=== PATIENT | female | born 1990 | race Asian ===

== ENCOUNTER 2017-05-21 12:45 | Inpatient (IN) | payer OTHER ==
[~2017-05-21] VITALS: Ht 157.5 cm; Wt 68.0 kg
[2017-05-21] MEDS: LACTATED RINGERS 1,000 ML IV SCH (01:30)
[2017-05-21] MEDS ORDERED: TERBUTALINE 1 MG/ML VIAL SUBQ SCH (13:20)
[2017-05-21] MEDS ORDERED: TERBUTALINE 1 MG/ML VIAL SUBQ ONE (13:26)
[2017-05-21] MEDS ORDERED: PROMETHAZINE 25 MG/ML VIAL IM PRN (17:10)
[2017-05-21] MEDS ORDERED: NALBUPHINE 10 MG/ML AMP IM PRN (17:10)
[2017-05-21] MEDS ORDERED: TERBUTALINE 2.5 MG TAB ONE ×2 (17:18→21:17)
[2017-05-21] MEDS ORDERED: NALBUPHINE HYDROCHLORIDE 10 MG/ML VIAL ONE ×2 (17:18→23:43)
[2017-05-21] MEDS ORDERED: PROMETHAZINE 25 MG/ML VIAL ONE ×2 (17:19→23:44)
[2017-05-21] MEDS ORDERED: TERBUTALINE 2.5 MG TAB PO SCH (20:00)
[2017-05-21] MEDS ORDERED: METHYLERGONOVINE 0.2 MG/ML AMP IM PRN ×2 (22:50→23:10)
[2017-05-21] MEDS ORDERED: CARBOPROST 250 MCG/ML AMP IM PRN ×2 (22:50→23:10)
[2017-05-21] MEDS ORDERED: OXYTOCIN 10 UNITS/ML VIAL IM SCH ×2 (22:50→23:10)
[2017-05-21] MEDS ORDERED: CITRIC ACID/SODIUM CITRATE 30 ML UDC PO ONE (23:15)
[2017-05-21] MEDS ORDERED: ceFAZolin 2,000 MG in NACL 0.9% 100 ML IV ONE (23:20)
[2017-05-21] MEDS ORDERED: OXYTOCIN 20 UNITS in LACTATED RINGERS 1,000 ML IV SCH (23:25)
[2017-05-21 23:40] LABS: HEMATOCRIT 38.5 % (36-48); HEMOGLOBIN 12.8 g/dL (12.0-16.0); RED BLOOD CELL COUNT(AUTO) 4.72 MIL/uL (4.20-5.40); WHITE BLOOD COUNT (AUTO) 8.8 K/uL (4.8-10.8)
[2017-05-21 23:41] LABS: BASOPHILS % (AUTO) 1.7 % (0.0-2.0); EOSINOPHILS % (AUTO) 1.2 % (0.0-4.0); LYMPHOCYTES % (AUTO) 17.1 % (20.5-51.1); MEAN CORPUSCULAR HEMOGLOBIN 27 pg (27-31); MEAN CORPUSCULAR HGB CONC 33 g/dL (33-37); MEAN CORPUSCULAR VOLUME 82 fL (80-94); MONOCYTES % (AUTO) 6.7 % (1.7-9.3); NEUTROPHILS # (AUTO) 6.5 K/uL (1.8-7.7); NEUTROPHILS % (AUTO) 73.3 % (42.2-75.2); PLATELET COUNT (AUTO) 244 K/uL (140-450); RED CELL DISTRIBUTION WIDTH 14.1 % (11.6-13.7)
[2017-05-21 23:42] LABS: BASOPHILS # (AUTO) 0.1 K/uL (0.00-0.22); EOSINOPHILS # (AUTO) 0.1 K/uL (0-0.4); LYMPHOCYTES # (AUTO) 1.5 K/uL (2.5-16.5); MONOCYTES # (AUTO) 0.6 K/uL (0.8-1.0)
[2017-05-21 23:58] LABS: ANION GAP 14.8 (8-16); CARBON DIOXIDE 26.3 mmol/L (21-32); CREATININE 0.9 mg/dL (0.6-1.3); POTASSIUM 4.1 mmol/L (3.5-5.1)
[2017-05-22 00:07] VITALS: BP 131/74
[2017-05-22 00:10] LABS: ALBUMIN 2.3 g/dL (3.4-5.0); TOTAL BILIRUBIN 0.3 mg/dL (0.0-1.0)
[2017-05-22 03:40] LABS: APPEARANCE,URINE CLEAR (CLEAR); BILIRUBIN,URINE NEGATIVE (NEGATIVE); BLOOD, URINE TRACE-I (NEGATIVE); COLOR,URINE YELLOW (YELLOW); LEUKOCYTE ESTERASE ,URINE NEGATIVE (NEGATIVE); NITRITE, URINE NEGATIVE (NEGATIVE); UGLUCOSE NEGATIVE (NEGATIVE)
[2017-05-22 03:54] LABS: RBC,URINE 0-5 (RARE) /HPF (0-5); WBC,URINE 0-5 (RARE) /HPF (0-5)
[2017-05-22] MEDS ORDERED: CITRIC ACID/SODIUM CITRATE 30 ML UDC ONE (06:07)
[2017-05-22] MEDS ORDERED: ceFAZolin 1,000 MG VIAL ONE (06:07)
[2017-05-22] MEDS ORDERED: OXYTOCIN 10 UNITS/ML VIAL ONE (06:50)
[2017-05-22] MEDS ORDERED: TRIAMCINOLONE 40 MG/ML 5ML VIAL ONE (06:51)
[2017-05-22] MEDS ORDERED: MORPHINE PRES FREE 10 MG/10 ML AMP IV ONE (07:09)
[2017-05-22] MEDS ORDERED: ONDANSETRON 4 MG/2 ML VIAL ONE (07:15)
[2017-05-22] MEDS ORDERED: oxyCODONE/APAP 5/325 MG 1 TAB TAB PO PRN (07:30)
[2017-05-22] MEDS ORDERED: METHYLERGONOVINE 0.2 MG/ML AMP IM PRN ×2 (07:30→11:15)
[2017-05-22] MEDS ORDERED: TRIMETHOBENZAMIDE 200 MG/2 ML SYR IM PRN (07:30)
[2017-05-22] MEDS ORDERED: TEMAZEPAM 15 MG CAP PO PRN (07:30)
[2017-05-22] MEDS ORDERED: MEASLES, MUMPS, AND RUBELLA 1 VIAL SQVAC PRN (07:30)
[2017-05-22] MEDS ORDERED: OXYTOCIN 20 UNITS in LACTATED RINGERS 1,000 ML IV SCH (07:36)
[2017-05-22] MEDS ORDERED: NALOXONE 0.4 MG/ML VIAL IVP PRN ×2 (07:40)
[2017-05-22] MEDS ORDERED: diphenhydrAMINE 50 MG/ML VIAL IVP PRN (07:40)
--- NOTE | 2017-05-22 09:15 | NUR ---
PATIENT HAS BEEN SCREENED AND CATEGORIZED LOW NUTRITION RISK. PATIENT WILL BE SEEN WITHIN 7 DAYS OF ADMISSION. 05/27/[address]
[2017-05-22] MEDS: LACTATED RINGERS 1,000 ML IV SCH ×2 (10:05→20:52)
[2017-05-22] MEDS ORDERED: METHYLERGONOVINE 0.2 MG/ML AMP ONE (11:18)
[2017-05-22] MEDS ORDERED: MISOPROSTOL 100 MCG TAB ONE (11:31)
[2017-05-22] MEDS ORDERED: CARBOPROST 250 MCG/ML AMP IM ONE (11:31)
[2017-05-22] MEDS ORDERED: CARBOPROST 250 MCG/ML AMP IM SCH ×2 (11:32→11:41)
[2017-05-22] MEDS ORDERED: MISOPROSTOL 200 MCG TAB RC SCH (11:40)
[2017-05-22] MEDS: OXYTOCIN 20 UNITS in LACTATED RINGERS 1,000 ML IV SCH (12:00)
[2017-05-22 12:53] LABS: BASOPHILS % (AUTO) 0.3 % (0.0-2.0); EOSINOPHILS % (AUTO) 0.3 % (0.0-4.0); HEMATOCRIT 25.1 % (36-48); HEMOGLOBIN 8.4 g/dL (12.0-16.0); LYMPHOCYTES # (AUTO) 0.9 K/uL (2.5-16.5); LYMPHOCYTES % (AUTO) 5.4 % (20.5-51.1); MEAN CORPUSCULAR HEMOGLOBIN 27 pg (27-31); MEAN CORPUSCULAR HGB CONC 34 g/dL (33-37); MEAN CORPUSCULAR VOLUME 82 fL (80-94); MONOCYTES # (AUTO) 1.1 K/uL (0.8-1.0); MONOCYTES % (AUTO) 6.7 % (1.7-9.3); NEUTROPHILS # (AUTO) 14.4 K/uL (1.8-7.7); NEUTROPHILS % (AUTO) 87.3 % (42.2-75.2); PLATELET COUNT (AUTO) 132 K/uL (140-450); RED BLOOD CELL COUNT(AUTO) 3.08 MIL/uL (4.20-5.40); RED CELL DISTRIBUTION WIDTH 14.4 % (11.6-13.7); WHITE BLOOD COUNT (AUTO) 16.4 K/uL (4.8-10.8)
[2017-05-22 13:10] LABS: ANION GAP 14.2 (8-16); CARBON DIOXIDE 24.4 mmol/L (21-32); CREATININE 0.7 mg/dL (0.6-1.3); POTASSIUM 5.6 mmol/L (3.5-5.1)
[2017-05-22 13:14] LABS: ALBUMIN 1.5 g/dL (3.4-5.0); TOTAL BILIRUBIN 0.7 mg/dL (0.0-1.0)
[2017-05-22 13:30] LABS: PROTHROMBIN TIME 11.8 secs (10.8-13.4)
[2017-05-22] MEDS ORDERED: DOCUSATE SOD/SENNA 50/8.6 MG 1 TAB PO SCH (21:00)
[2017-05-23] MEDS ORDERED: OXYTOCIN 10 UNITS/ML VIAL ONE (04:58)
[2017-05-23] MEDS: OXYTOCIN 20 UNITS in LACTATED RINGERS 1,000 ML IV SCH (05:30)
[2017-05-23 07:29] LABS: MEAN CORPUSCULAR HEMOGLOBIN 27 pg (27-31); MEAN CORPUSCULAR HGB CONC 34 g/dL (33-37); MEAN CORPUSCULAR VOLUME 81 fL (80-94); PLATELET COUNT (AUTO) 145 K/uL (140-450); RED BLOOD CELL COUNT(AUTO) 2.37 MIL/uL (4.20-5.40); RED CELL DISTRIBUTION WIDTH 14.3 % (11.6-13.7); WHITE BLOOD COUNT (AUTO) 19.4 K/uL (4.8-10.8)
[2017-05-23 07:42] LABS: HEMOGLOBIN 6.5 g/dL (12.0-16.0)
[2017-05-23 07:43] LABS: HEMATOCRIT 19.3 % (36-48)
[2017-05-23] MEDS: FERROUS SULFATE 325 MG TABEC PO SCH ×2 (09:04→17:27)
[2017-05-23 09:20] LABS: LYMPHOCYTES % (MANUAL) 6 % (20-46); MONOCYTES % (MANUAL) 3 % (5-12)
[2017-05-23] MEDS: IBUPROFEN 800 MG TAB PO PRN (20:36)
[2017-05-24] MEDS: HYDROcodone/APAP 5/325 MG 1 TAB TAB PO PRN (02:05)
[2017-05-24] MEDS: SIMETHICONE 80 MG TAB.CHEW PO PRN (02:06)
[2017-05-24 06:22] LABS: WHITE BLOOD COUNT (AUTO) 22.8 K/uL (4.8-10.8)
[2017-05-24 06:29] LABS: MEAN CORPUSCULAR HEMOGLOBIN 27 pg (27-31); MEAN CORPUSCULAR HGB CONC 34 g/dL (33-37); MEAN CORPUSCULAR VOLUME 81 fL (80-94); PLATELET COUNT (AUTO) 205 K/uL (140-450); RED BLOOD CELL COUNT(AUTO) 2.42 MIL/uL (4.20-5.40); RED CELL DISTRIBUTION WIDTH 14.5 % (11.6-13.7)
[2017-05-24 06:35] LABS: HEMATOCRIT 19.6 % (36-48)
[2017-05-24 06:44] LABS: LYMPHOCYTES % (MANUAL) 10 % (20-46); MONOCYTES % (MANUAL) 8 % (5-12)
[2017-05-24 07:12] LABS: HEMOGLOBIN 6.6 g/dL (12.0-16.0)
[2017-05-24] MEDS ORDERED: METOCLOPRAMIDE 10 MG/2 ML INJ VIAL IVP PRN (13:20)
--- NOTE | 2017-05-24 14:00 | NUR ---
I met with patient and discuss physical status, support system, lack of interaction and bonding with baby. Patient was guarded and limited with communicating with me; no eye contact and a flat affect. I continue talking to patient and educated mother about needs, lack of stimulation from mother, and possible consequences on infants not connecting/bounding with parent, caregiver (RAD/Reactive Attachment Disorder). Patient became interactive, focus and less guarded as I was describing some of the needs her new born is needing and she is not providing for him. Patient became more open and provided background and family dynamics. Patient stated having a difficult with limited support from parents, with who she is presently living in [facility] [place] [facility]. Per Patient she and baby's father did not plan the and have not got after 2 years in the relationship. Patient disclosed that it is a cultural issue in her family which created conflict with patient's parents. Per Patient they have expressed disappointment on her choices no long ago and she is hopeful that things can change now that the baby is born. Patient stated having feelings of overwhelming depression, stress, guilt combine now with pain and nausea from . Patient stated " I feel so tired, unmotivated and on pain that I can not get my self to get up or hold the baby; its hard for me to move, my body is on pain and I'm nauseous a lot". I listed to Patient, acknowledged feelings, concerns and physical state, educated her about depression, symptoms and give her resources and referrals for support groups however; I also confronted her about her lack of efforts to learn skills or even utilized nursing support and assistance with her baby. Discussed possible time spending with nurse asking questions and learning how to care for her baby for when she is at home. Patient seem to gain insight and a different perspective on her situation and was able to acknowledged her behaviors and lack of efforts to bound with baby. Agreed to attempt and have interactions with baby, ask, and learn new skills to care for new born. Patient stated that she will spend alone time with baby at about 16:00 and accepted referrals from this health technical writer. Patient also stated that she will talk to baby's father and her parents to ask for support and help when returning home. Patient thank me for time, information and resources.
[2017-05-24] MEDS ORDERED: KETOROLAC 30 MG/ML VIAL IVP PRN (16:40)
[2017-05-24] MEDS ORDERED: PIPERACILLIN/TAZOBACTAM 4.5 GM in DEXTROSE 5% 100 ML IV SCH (18:00)
[2017-05-24] MEDS: PIPERACILLIN/TAZOBACTAM 4.5 GM in NACL 0.9% 100 ML IV SCH (22:07)
[2017-05-24 23:25] LABS: HEMATOCRIT 27.8 % (36-48); HEMOGLOBIN 9.2 g/dL (12.0-16.0)
[2017-05-25] MEDS: HYDROcodone/APAP 5/325 MG 1 TAB TAB PO PRN (03:23)
[2017-05-25] MEDS: SIMETHICONE 80 MG TAB.CHEW PO PRN ×2 (03:44→08:25)
[2017-05-25] MEDS: PIPERACILLIN/TAZOBACTAM 4.5 GM in NACL 0.9% 100 ML IV SCH ×2 (04:05→10:00)
[2017-05-25 06:32] LABS: BASOPHILS % (AUTO) 0.3 % (0.0-2.0); EOSINOPHILS # (AUTO) 0.1 K/uL (0-0.4); EOSINOPHILS % (AUTO) 0.9 % (0.0-4.0); HEMATOCRIT 26.6 % (36-48); HEMOGLOBIN 8.9 g/dL (12.0-16.0); LYMPHOCYTES # (AUTO) 1.3 K/uL (2.5-16.5); LYMPHOCYTES % (AUTO) 7.9 % (20.5-51.1); MEAN CORPUSCULAR HEMOGLOBIN 28 pg (27-31); MEAN CORPUSCULAR HGB CONC 33 g/dL (33-37); MEAN CORPUSCULAR VOLUME 85 fL (80-94); MONOCYTES # (AUTO) 0.8 K/uL (0.8-1.0); MONOCYTES % (AUTO) 4.8 % (1.7-9.3); NEUTROPHILS # (AUTO) 14.4 K/uL (1.8-7.7); NEUTROPHILS % (AUTO) 86.1 % (42.2-75.2); PLATELET COUNT (AUTO) 236 K/uL (140-450); RED BLOOD CELL COUNT(AUTO) 3.15 MIL/uL (4.20-5.40); RED CELL DISTRIBUTION WIDTH 14.5 % (11.6-13.7)
[2017-05-25 07:22] LABS: WHITE BLOOD COUNT (AUTO) 16.6 K/uL (4.8-10.8)
[2017-05-25] MEDS: FERROUS SULFATE 325 MG TABEC PO SCH (08:17)
[2017-05-25] MEDS: IBUPROFEN 800 MG TAB PO PRN (08:24)
[2017-05-25] MEDS ORDERED: INFLUENZA VIRUS VACCINE QUAD 0.5 ML SYR IMVAC PRN (09:00)
[2017-05-25] MEDS ORDERED: PIPERACILLIN/TAZOBACTAM 4.5 GM in DEXTROSE 5% 50 ML IV SCH (18:00)
== END 2017-05-25 21:00 | disposition home or self-care (01) | DRG 540 ==
LOC: MLD 12:45 → OBSVTOIN 22:30 → MFCC 05-22 08:21
PROVIDERS: ADMIT Obstetrics & Gynecology; ATTEND Obstetrics & Gynecology
PROC: 10D00Z1 Extraction of Products of Conception, Low, Open Approach (ICD-10-PCS; 2017-05-21)
PROC: 30233N1 Transfusion of Nonautologous Red Blood Cells into Peripheral Vein, Percutaneous Approach (ICD-10-PCS; principal; 2017-05-24)
DX: O98.52 Other viral diseases complicating childbirth (principal); K56.7 Ileus, unspecified; O75.4 Other complications of obstetric surgery and procedures; B00.9 Herpesviral infection, unspecified; O99.02 Anemia complicating childbirth; D64.9 Anemia, unspecified; Z37.0 Single live birth; Z3A.38 38 weeks gestation of pregnancy; K91.89 Other postprocedural complications and disorders of digestive system
CPT/HCPCS: G0378 ×10; 36415; 74018; 76805; 80053; 81001; 85018; 85025; 85610; 85730; 86592; 86886; 86900; 86901; 86920; J0690; J2210; J2270; J2300; J2405; J2543; J2550; J2590; J2765; J3105; J3301; J3490; J7030; J7060; J7120; P9016; Q0092

== ENCOUNTER 2017-07-02 02:20 | Emergency (ER) | payer OTHER ==
[~2017-07-02] VITALS: Ht 157.5 cm; Wt 49.9 kg
[2017-07-02 02:38] VITALS: BP 154/94
--- NOTE | 2017-07-02 03:32 | NUR ---
PT TAKEN TO BED 11
--- NOTE | 2017-07-02 03:34 | NUR ---
27 Y/O F W/C/O PELVIC PAIN,CHILLS AND PUS FORM X YESTERDAY. PT STATES HAD A ON 05/22/17 AND WAS OK UNTIL YESTERDAY. MED HX X 1, NO OTHER S/S OF DISTRESS NOTED AT THE MOMENT. ER MADE AWARE.
[2017-07-02] MEDS ORDERED: KETOROLAC 30 MG/ML VIAL IM ONE (03:50)
[2017-07-02] MEDS ORDERED: HYDROcodone/APAP 5/325 MG 1 TAB TAB PO ONE (03:50)
[2017-07-02] MEDS ORDERED: CLINDAMYCIN 600 MG/4 ML VIAL IM ONE (03:50)
[2017-07-02] MEDS ORDERED: BACITRACIN OINT 500 UNITS/GM PKT TP ONE (06:10)
--- NOTE | 2017-07-02 06:16 | NUR ---
ASSIST DR. COMBS WITH INCISION at bedside for entire examination. Patient tolerated procedure . Patient assisted to position of comfort after examination.
[2017-07-02 06:30] VITALS: BP 138/96
--- NOTE | 2017-07-02 06:30 | NUR ---
Patient discharged with v/s stable. Written and verbal after care instructions given and explained. Patient alert, oriented and verbalized understanding of instructions. Ambulatory with steady gait. All questions addressed prior to discharge. ID band removed. Patient advised to follow up with PMD. Rx of CLINDAMYCIN, NORCO, AND NAPROSYN given. Patient educated on indication of medication including possible reaction and side effects. Opportunity to ask questions provided and answered.
== END 2017-07-02 06:30 | disposition home or self-care (01) ==
LOC: MED 02:20
DX: T81.4XXA Infection following a procedure, initial encounter (principal); R10.30 Lower abdominal pain, unspecified
CPT/HCPCS: 87070; 96372; 99284; J1885; J3490; 87186